=== PATIENT | female | born 1985 | race Hispanic/Latino ===

== ENCOUNTER 2017-03-05 10:40 | Observation (INO) | payer SELFPAY ==
[~2017-03-05] VITALS: Ht 152.4 cm; Wt 62.1 kg
[2017-03-05 11:17] LABS: CREATININE 0.6 mg/dL (0.5-1.5); POTASSIUM 3.6 mmol/L (3.5-5.1)
[2017-03-05 11:54] LABS: BASOPHILS % (AUTO) 1.4 % (0.0-5.0); EOSINOPHILS % (AUTO) 0.2 % (0.0-8.0); LYMPHOCYTES % (AUTO) 19.3 % (21.0-51.0); MEAN CORPUSCULAR HEMOGLOBIN 11.8 pg (27.0-33.0); MEAN CORPUSCULAR HGB CONC 25.1 g/dL (32.0-36.0); MEAN CORPUSCULAR VOLUME 47.2 fL (79-99); MONOCYTES % (AUTO) 6.9 % (3.0-13.0); NEUTROPHILS % (AUTO) 72.2 % (40.0-77.0); NUCLEATED RED BLOOD CELLS 0.3 % (0.0-0.19); PLATELET COUNT (AUTO) 350 K/uL (130-400); RED BLOOD CELL COUNT(AUTO) 3.95 MIL/uL (4.00-5.50); RED CELL DISTRIBUTION WIDTH 24.4 % (11.0-15.5); WHITE BLOOD COUNT (AUTO) 6.7 K/uL (4.8-10.8)
[2017-03-05 11:58] LABS: HEMATOCRIT 18.7 % (36-48)
[2017-03-05 12:04] LABS: % IRON SATURATION 2.1 % (22-44)
[2017-03-05] MEDS ORDERED: SODIUM CHLORIDE 0.9% 1000ML 1,000 ML IV ONE (13:01)
[2017-03-05 15:51] VITALS: BP 122/61
[2017-03-05] MEDS: SODIUM CHLORIDE 0.9% 1000ML 1,000 ML IV SCH (16:36)
[2017-03-05 19:23] VITALS: BP 114/62
[2017-03-05] MEDS ORDERED: FLU VACC QS2017-18 36MOS UP/PF 60 MCG/0.5 ML ML IM SCH (19:45)
[2017-03-05 22:51] VITALS: BP 117/72
[2017-03-06 02:27] LABS: HEMATOCRIT 28.7 % (36-48)
[2017-03-06 03:36] VITALS: BP 106/60
[2017-03-06 07:19] VITALS: BP 102/64
[2017-03-06] MEDS: SODIUM CHLORIDE 0.9% 1000ML 1,000 ML IV SCH (08:00)
== END 2017-03-06 10:25 | disposition home or self-care (01) ==
LOC: EDH 10:40 → EDHIP 10:41 → WSH 15:50
PROVIDERS: ADMIT Specialist; ATTEND Specialist
DX: D50.0 Iron deficiency anemia secondary to blood loss (chronic) (principal); N92.0 Excessive and frequent menstruation with regular cycle; Z23 Encounter for immunization
CPT/HCPCS: 36415 ×2; 36430; 76830; 76856; 80048; 83540; 83550; 85025; 86156; 86850; 86870; 86900; 86901; 86922 ×2; 88313; 90471; 96360; 96361 ×2; 99285; G0378 ×24; J7030 ×2; P9016 ×3; Q2038

== ENCOUNTER 2022-06-05 18:39 | Emergency (ER) | payer OTHER ==
[~2022-06-05] VITALS: Ht 152.4 cm; Wt 72.6 kg
[2022-06-05 19:54] LABS: BASOPHILS % (AUTO) 0.5 % (0.0-5.0); EOSINOPHILS % (AUTO) 1.7 % (0.0-8.0); HEMATOCRIT 39.1 % (36-48); LYMPHOCYTES % (AUTO) 25.2 % (21.0-51.0); MEAN CORPUSCULAR HEMOGLOBIN 22.8 pg (27.0-33.0); MEAN CORPUSCULAR HGB CONC 31.2 g/dL (32.0-36.0); MEAN CORPUSCULAR VOLUME 73.1 fL (79-99); MONOCYTES % (AUTO) 8.1 % (3.0-13.0); NEUTROPHILS % (AUTO) 64.1 % (40.0-77.0); PLATELET COUNT (AUTO) 162 K/uL (130-400); RED BLOOD CELL COUNT(AUTO) 5.35 MIL/uL (4.00-5.50); RED CELL DISTRIBUTION WIDTH 15.9 % (11.0-15.5); WHITE BLOOD COUNT (AUTO) 8.4 K/uL (4.8-10.8)
[2022-06-05 20:02] LABS: CREATININE 0.6 mg/dL (0.5-1.5); POTASSIUM 3.6 mmol/L (3.5-5.1)
[2022-06-05 20:06] LABS: ALBUMIN 3.9 g/dL (3.5-5.0)
[2022-06-05 20:08] LABS: APPEARANCE,URINE CLEAR (CLEAR); BILIRUBIN,URINE NEGATIVE (NEGATIVE); COLOR,URINE COLORLESS (YELLOW); GLUCOSE, URINE (UA) NEGATIVE (NEGATIVE); KETONES,URINE NEGATIVE (NEGATIVE); LEUKOCYTE ESTERASE ,URINE NEGATIVE Leu/uL (NEGATIVE); NITRATE,URINE NEGATIVE (NEGATIVE); OCCULT BLOOD,URINE SMALL (NEGATIVE); PH,URINE 5.5 (5.0-8.0); PROTEIN,URINE NEGATIVE (NEGATIVE); UROBILINOGEN,URINE 0.2 mg/dL (0.2-1.0)
[2022-06-05 20:16] LABS: HCG,QUALITATIVE URINE NEGATIVE (NEGATIVE)
[2022-06-05 20:17] LABS: SQUAMOUS EPITHELIAL CELL,UR RARE /HPF (0-2); WBC,URINE 0-1 /HPF (0-1)
[2022-06-05] MEDS ORDERED: LABETALOL 20MG VIAL IV ONE (20:30)
[2022-06-05] MEDS ORDERED: AMLO-257 PO (20:34)
[2022-06-05 21:06] VITALS: BP 128/83
== END 2022-06-05 21:15 | disposition home or self-care (01) ==
LOC: EDH 18:39
DX: H11.31 Conjunctival hemorrhage, right eye (principal); I10 Essential (primary) hypertension; Z98.890 Other specified postprocedural states
CPT/HCPCS: 99285; 96374; 80053; 85025; 81001; 81025; 36415; 93005; J3490